=== PATIENT | female | born 1955 | race Caucasian/White ===

== ENCOUNTER 2017-02-06 15:56 | Inpatient (IN) | payer OTHER ==
--- NOTE | ~2017-02-06 | DS ---
Discharge Summary [facility] [address] [place]. [address] NAME: MARLY SILVA : 59 STATUS : DIS IN PAT#: [id number] AGE: 61 ADM/REG DATE : 02/06/17 MR#: [id number] REPORT SERV DATE: 02/15/17 DICTATED BY: MARIA DEL ROSARIO CAMARGO DATE: 02/14/17 REPORT STATUS : Draft TRANSCRIBED BY: MODL DATE: 02/14/17 ADMISSION DATE: 02/06/2017 DISCHARGE DATE: 02/14/2017 GI DOCTOR: Delvis Mark M.D. SURGEON: Lukas Whitehead M.D. HOSPITAL COURSE: Please refer to the H and P done by Dr. Perkins on 02/06/2017 and my interim discharge summary done on 02/13/2017. Since my discharge summary, the patient has only minimal abdominal pain. Dr. Whitehead came back from the weekend and he told me that this patient getting a PTC would most likely be a big mistake. The patient was seen by him today, said she has minimal pain and he believes that outpatient observation is warranted rather than the risk of any kind of PTC. I discussed the case with Dr. Dalton who agrees with Dr. Whitehead after reviewing the MRI and this was discussed with the patient. The patient is worried about her pain, but admits that it is much much less compared to when she came in. I told her that we will increase her diet and if she tolerates a soft diet, she would be able to be discharged home. She needs to follow up with Dr. Faby Mota in one to two weeks and followup with Dr. Mark. Having a procedure right now would contain more risks and benefits, especially when clinically and laboratory peralta she is improving. However, if that gets worse with fever, vomiting, she might need followup imaging to see if she would need intervention. She will be discharged home after she eats on the following medications: Norvasc 2.5 mg a day, 1 mg twice a day, lisinopril 40 mg a day, metoprolol 100 mg twice a day, Protonix 40 mg twice a day, Seroquel 100 mg at bedtime, Neurontin 300 mg four times a day, Cymbalta 60 mg a day, iron 325 mg twice a day, baclofen 10 mg four times a day, Reglan 10 mg three times a day p.r.n., vitamin B12 at 1000 mcg q.30 days, Caltrate 600 mg twice a day, multivitamin once a day, Prolia 60 mg subcu every six months, Excedrin p.r.n. I will give her a prescription for Lortab 5/325 q.6 hours p.r.n. pain for about a week only. This has been explained to the patient at length. TIME SPENT: 40 minutes. MONICA/OLYA Maria Del Rosario Camargo M.D. / [id number] CC: Lm Guthrie M.D.
--- NOTE | ~2017-02-06 | CN ---
Consultation Report [address] [address] NAME: MARLY SILVA : 59 STATUS : DIS IN PAT#: [id number] AGE: 61 ADM/REG DATE : 02/06/17 MR#: [id number] REPORT SERV DATE: 02/08/17 DICTATED BY: PIPER HALE DATE: 02/08/17 REPORT STATUS : Draft TRANSCRIBED BY: MODL DATE: 02/08/17 CONSULTATION DATE OF CONSULTATION: 02/07/2017 LOCATION: Bed 503. CHIEF COMPLAINT: I am asked to see this lady with pancreatitis. HISTORY OF PRESENT ILLNESS: This 61-year-old lady is well known to me. She has had a history of recurrent esophageal dilatations for strictures. Past medical history is remarkable for hypertension, migraines, and glucose intolerance. She had a partial gastrectomy approximately 10 years ago. Recent complaints include a rather marked upper abdominal pain with repetitive nausea and vomiting. She denied diarrhea or blood in the stools. She currently denies chills or fever. She is post cholecystectomy a number of years ago. HOME MEDICATIONS: Include: Cymbalta, Neurontin, lisinopril, and Reglan. PHYSICAL EXAMINATION: HEENT: Head, eyes, ears, nose, and throat grossly normal. NECK: Supple. CHEST: Clear. CARDIAC: Regular rhythm. ABDOMEN: Soft and nontender. Bowel sounds are diminished. No palpable masses. LABORATORY DATA: Initial lab work showed hemoglobin of 12. Alkaline phosphatase and ALT were elevated about twice the upper limits of normal. Lipase and amylase were both in the 3000 range. IMPRESSION: Acute pancreatitis post cholecystectomy. Most likely gallstone related. PLAN: MRCP is pending. We will probably proceed with ERCP and possible stone extraction or sphincterotomy in the near future. Thank you for allowing me to see this lady. DAVID/OLYA Piper Hale M.D. Consultation Report [address] [address] NAME: MARLY SILVA : 59 STATUS : DIS IN PAT#: [id number] AGE: 61 ADM/REG DATE : 02/06/17 MR#: [id number] REPORT SERV DATE: 02/08/17 DICTATED BY: PIPER HALE DATE: 02/08/17 REPORT STATUS : Draft TRANSCRIBED BY: OLYA DATE: 02/08/17 / [id number] CC: Lm Guthrie M.D.
--- NOTE | ~2017-02-06 | OP ---
Record Of Operation [facility] [place] [address] NAME: MARLY SILVA : 59 STATUS : DIS IN PAT#: [id number] AGE: 61 ADM/REG DATE : 02/06/17 MR#: [id number] REPORT SERV DATE: 02/09/17 DICTATED BY: PIPER HALE DATE: 02/09/17 REPORT STATUS : Draft TRANSCRIBED BY: MODL DATE: 02/09/17 DATE OF PROCEDURE: 02/09/2017 PREOPERATIVE DIAGNOSES: 1. Acute pancreatitis. 2. Abnormal biliary scan. PROCEDURE: ERCP. POSTOPERATIVE DIAGNOSIS: Unsuccessful ERCP. PREMEDICATION: Diprivan. PROCEDURE IN DETAIL: The scope was inserted without difficulty. There has been a subtotal gastrectomy with a Billroth II anastomosis. Both the afferent and efferent limbs were inspected and no ampulla can be found. Therefore, the procedure was terminated. IMPRESSION: Successful ERCP. DAVID/OLYA Piper Hale M.D. / [id number] CC: Lm Guthrie M.D.
--- NOTE | ~2017-02-06 | IDS ---
Interim Discharge Summary [facility] [address] [facility] [place]. [address] NAME: MARLY SILVA : 59 STATUS : DIS IN PAT#: [id number] AGE: 61 ADM/REG DATE : 02/06/17 MR#: [id number] REPORT SERV DATE: 02/13/17 DICTATED BY: MARIA DEL ROSARIO CAMARGO DATE: 02/13/17 REPORT STATUS : Draft TRANSCRIBED BY: MODL DATE: 02/13/17 ADMISSION DATE: 02/06/2017 DISCHARGE DATE: SURGERY: Dr. Whitehead. INTERIM DIAGNOSES: 1. Gallstone pancreatitis. 2. Choledocholithiasis. 3. Status post ileus versus small bowel obstruction. 4. Hypertension. 5. Status post hypokalemia. 6. Depression. DIAGNOSTIC EXAMS: CAT scan of the abdomen and pelvis showing extensive prior bowel surgery with air and fluid dilated, probable small bowel anastomotic site. Left lower quadrant abdomen may represent a peristaltic segment at the anastomosis of the bowel. Correlation with prior surgical history needed, mildly dilated small bowel throughout the upper to lower abdomen with air-fluid levels. Transition zone not identified. Normal caliber distal ileum. Dilated bowel segments measure up to 3.5 cm in diameter consistent with a moderate partial SBO pattern versus small bowel ileus pattern. Postsurgical changes from apparent gastric surgery, appendectomy, cholecystectomy, hysterectomy. KUB, enteric tube passing into the proximal gastric cardia, proximal port remains 4 cm above the GE junction, advancement of 5-6 cm, no further radiographic confirmation should be needed. Subsegmental atelectasis, left lung base. Moderately air dilated small bowel segments, left lower quadrant. Chest x-ray, bandlike opacity over the periphery of the right upper lobe likely related to scarring and/or atelectasis. MRI of the abdomen, stone or several stones in the distal common bile duct intermittently obstructing the common bile duct. There is pancreatitis, prior cholecystectomy. Hepatic ultrasound, status post cholecystectomy with 11 mm common bile duct. No stone identified within the duct sonography. HOSPITAL COURSE: Please refer to the H and P done by Dr. Perkins dated on 02/06/2017. Briefly, this is a 61-year-old female who comes in with nausea and vomiting. The patient has been having nausea, vomiting, abdominal pain, and went to the emergency room. She was admitted by Dr. Perkins and the above tests were done. We got Dr. Whitehead to consult and follow the patient up and said that he will not be able to do surgery for her and they should try removal of the stones through the ERCP. We got Dr. Mark involved, attempted an ERCP but could not cannulate the bile ducts. He then said that the patient would need surgery to remove the stones. I discussed the case with Dr. Whitehead and together, we presented the option to the patient and we tried conservatively advancing her diet as her liver enzymes are improving. The patient was initially able to tolerate a diet. However, the pain got worse and now needing more pain medications. I discussed with her about the possibility of a PTC through the Interventional Radiology and she is willing to undergo that to get rid of the pain. The patient will now be scheduled for PTC. Partner of mine will be following up the patient starting Tuesday. Interim Discharge Summary [address] [address] NAME: MARLY SILVA : 59 STATUS : DIS IN PAT#: [id number] AGE: 61 ADM/REG DATE : 02/06/17 MR#: [id number] REPORT SERV DATE: 02/13/17 DICTATED BY: MARIA DEL ROSARIO CAMARGO DATE: 02/13/17 REPORT STATUS : Draft TRANSCRIBED BY: OLYA DATE: 02/13/17 MONICA/OLYA Maria Del Rosario Camargo M.D. / [id number] CC: Lm Guthrie
--- NOTE | ~2017-02-06 | HP ---
History And Physical [place] [id number] [facility] [place]. [address] NAME: MARLY SILVA : 59 STATUS : DIS IN PAT#: [id number] AGE: 61 ADM/REG DATE : 02/06/17 MR#: [id number] REPORT SERV DATE: 02/06/17 DICTATED BY: SYED VARGAS DATE: 02/06/17 REPORT STATUS : Draft TRANSCRIBED BY: MODHoward DATE: 02/06/17 DATE OF ADMISSION: 02/06/2017 HISTORY OF PRESENT ILLNESS: The patient is a 61-year-old female, who presented today to [facility] emergency room because of complaint of nausea and vomiting, started this morning at 11 a.m. The patient said that she was having nausea, vomiting, and abdominal pain started at the same time. She said that it all started this morning and she vomited that she ate yesterday. She denies any hematemesis. She is complaining of abdominal pain mostly in the upper abdomen, but she has some pain in the lower abdomen as well. She denies any chest pain or shortness of breath. No fever. No rash. No headaches. Right now in the emergency room after she received morphine, she is feeling better and comfortable and not vomiting anymore. All 14-point review of systems done and negative except what is stated in the history of present illness. PAST MEDICAL HISTORY: Known for history of partial gastrectomy for stomach not working properly according to the patient was done 10 years ago in [place] by Dr. Alexis Bales. Also, had multiple abdominal surgeries in the past. Other medical problems include history of migraine headaches, hypertension, depression, history of pneumonia in the past. Also, she said that she has a depression and she sees Dr. Garcia. She is on multiple antipsychotic medications including Seroquel and Cogentin. She denies any history of heart attacks. No strokes. SURGICAL HISTORY: According to the patient, she had history of cholecystectomy, appendectomy, partial gastrectomy, tonsillectomy, and also she had some surgery on her leg as well. HOME MEDICATIONS: Include Norvasc 2.5 mg a day, baclofen 10 mg a day, calcium carbonate 600 mg b.i.d., vitamin B12 1000 mcg subcu daily, Prolia 60 mg a day, Cymbalta 60 mg a day, ferrous sulfate 325 p.o. b.i.d., Neurontin 300 four times a day, lisinopril 40 a day, Reglan 10 mg three times daily p.r.n., metoprolol 100 mg p.o. twice a day, multivitamins daily, nitrofurantoin 100 mg b.i.d., Seroquel 100 mg daily, and Excedrin three tablets p.o. twice a day. FAMILY HISTORY: Mother had coronary artery disease, had coronary artery bypass grafting. Father of an excessive alcohol use. SOCIAL HISTORY: She is . She has three children. No alcohol. No recreational drug use. She used to smoke one pack per day and she quit smoking in 2012. PRIMARY CARE PHYSICIAN: Faby larose. PSYCHIATRIST: Dr. Garcia. History And Physical [address] [address] NAME: MARLY SILVA : 59 STATUS : DIS IN PAT#: [id number] AGE: 61 ADM/REG DATE : 02/06/17 MR#: [id number] REPORT SERV DATE: 02/06/17 DICTATED BY: SYED VARGAS DATE: 02/06/17 REPORT STATUS : Draft TRANSCRIBED BY: OLYA DATE: 02/06/17 MANAGER STRATEGIC PARTNERSHIPS: Delvis Mark M.D. PHYSICAL EXAMINATION: GENERAL: Overweight female, not in acute distress. Resting quietly. VITAL SIGNS: Blood pressure 139/66, temperature 98.1, heart rate 74, respiratory rate 18, and oxygen saturation 95 on room air. HEENT: Head atraumatic, normocephalic. Conjunctivae clear. Pupils are equal and reactive to light and accommodation. Extraocular muscles are intact. NECK: Supple. Trachea is midline. No supraclavicular or cervical lymphadenopathy. LUNGS: Diminished breath sounds bilaterally. Decreased respiratory effort. CARDIOVASCULAR SYSTEM: Regular rate and rhythm. Ihvbu-xk-tgoqldh impulse not displaced. ABDOMEN: Obese, very soft. There is a tenderness to palpation in the upper abdominal area, epigastric area, right and left lower quadrants, as well as periumbilical area. There is no guarding. There is no rebound, very soft abdomen. There are slightly diminished bowel sounds. No organomegaly. EXTREMITIES: No clubbing, cyanosis. No edema. SKIN: Normal color and turgor. Slightly decreased turgor. PSYCHIATRIC: Normal mood, slightly flat affect. NEUROLOGIC: Awake, alert, and oriented in time, place, and person. EXTREMITIES: Muscle strength is 5/5 bilaterally in the upper and lower extremities. LABORATORY RESULTS: White count 10.5, hemoglobin 15.7, hematocrit 45.4, and platelet count 245. INR is 1. PT 13.4. Sodium 145, potassium 4.1, chloride 110, carbon dioxide 25, BUN 23, creatinine 0.77. Blood sugar 173. Total bilirubin 1.4. Alkaline phosphatase 330. ALT 498. AST 1009. Lipase 5292. Urinalysis showed small amount of bilirubin, trace leukocyte esterase, only 8 white blood cells. IMAGING: CT of the abdomen and pelvis without contrast revealed extensive prior bowel surgeries with air and fluid-dilated probable small bowel anastomotic site, left lower quadrant. This may represent peristaltic segment at an anastomosis of the segment of the small bowel, although correlations with prior surgical history needed. Mildly dilated small bowel, although the lower abdomen with air-fluid levels transitional zone not identified, although normal caliber distal ileum. The dilated bowel segment measures up to 3.5 cm consistent with a moderate partial small-bowel obstruction pattern. There was a small bowel ileus pattern. Postsurgical changes from apparent gastric surgery, appendectomy, cholecystectomy, and hysterectomy. ASSESSMENT AND PLAN: 1. 61-year-old female with an extensive abdominal surgeries, history of partial gastrectomy, history of hypertension, history of depression, and possible other psychiatric disorder, presented with nausea, vomiting, abdominal pain, started this morning. 2. She has a diagnosis of acute pancreatitis with her lipase being elevated at the level of 5292 and elevated liver enzymes, which is consistent with acute pancreatitis. There is some cholestatic pattern and mildly elevated bilirubin. Differential diagnosis will include possible biliary source versus possible medication-induced pancreatitis. We will start the patient on vigorous IV fluid hydration, as well as we will give her History And Physical [address] [address] NAME: MARLY SILVA : 59 STATUS : DIS IN PAT#: [id number] AGE: 61 ADM/REG DATE : 02/06/17 MR#: [id number] REPORT SERV DATE: 02/06/17 DICTATED BY: SYED VARGAS DATE: 02/06/17 REPORT STATUS : Draft TRANSCRIBED BY: MODHoward DATE: 02/06/17 reasonable pain and nausea control for acute pancreatitis. We will check a fractionated bilirubin level and we will check hepatitis profile as well. 3. We will check also her fasting lipid profile in the morning. 4. We will monitor her closely. We will keep her n.p.o. within good IV fluid hydration. She is getting a central line in the emergency room. 5. Partial small-bowel obstruction. I discussed CT of the abdomen and pelvis with surgeon, Dr. Whitehead and asked him to see the patient today, but he said that he will see the patient tomorrow. He recommended to put a nasogastric tube placement to low intermittent suction. He recommended this to me by phone and he said that most likely patient has ileus related to acute pancreatitis and recommended to do acute pancreatitis evaluation, as well as I spoke with Dr. Mark, her mechanical engineering lecturer and he is familiar with her. He also recommended to put nasogastric tube placement to low intermittent suction. 6. Regarding her urinalysis, I do not think this is active urinary infection. She has very minimal changes on the urinary analysis and I do not think she has a urinary tract infection. 7. History of abdominal surgery 10 years ago. We will request old records from her surgeon in [place], Dr. Alexis Bales. We will also request old records with Faby Mota. We will put the patient on intravenous antibiotics. She has hyperglycemia. We will check her hemoglobin A1c. 8. She may need to be on insulin sliding scale. 9. Heme-positive stool done in the Emergency Room with normal hemoglobin. We will check serial hemoglobin and hematocrit. We will put the patient on Protonix 40 mg IV b.i.d. I will follow up on this patient starting tomorrow. I will ask also Dr. Mark to see this patient today. MG/MODL Syed Vargas M.D. / [id number] CC: Lm Faust M.D. Matthew Bagamery, M.D.
--- NOTE | ~2017-02-06 | CN ---
Consultation Report [facility] [address] [place]. [address] NAME: MARLY SILVA : 59 STATUS : DIS IN PAT#: [id number] AGE: 61 ADM/REG DATE : 02/06/17 MR#: [id number] REPORT SERV DATE: 02/08/17 DICTATED BY: LUKAS VEGAS DATE: 02/07/17 REPORT STATUS : Draft TRANSCRIBED BY: MODL DATE: 02/07/17 SURGICAL CONSULTATION DATE OF CONSULTATION: 02/07/2017 REASON FOR CONSULTATION: Abdominal pain. HISTORY OF PRESENT ILLNESS: This pleasant 61-year-old female presented to the emergency department with an acute onset of sharp mid abdominal pain that was like a belt. It began at 11 o'clock on the morning on the day of presentation. She had associated nausea and vomiting after the pain. She denied hematemesis or coffee-ground emesis. She denied any recent change in bowel or bladder habits, weight loss, fever, chills or other constitutional symptoms. She had no previous history of recent abdominal pain. She has no other constitutional symptoms other than some dysuria. She has a history of gastrectomy with unknown anatomy after the resection approximately 15 years ago in [place], [place] by Dr. Alexis Bales. She has had multiple abdominal surgeries in the past. PAST MEDICAL HISTORY: She has past medical history for a psychotic disorder, hypertension, depression, and a history of pneumonia. PAST SURGICAL HISTORY: Cholecystectomy, appendectomy, and tonsillectomy. ALLERGIES: TORADOL AND PENICILLINS. MEDICATIONS: Please see hospital chart. FAMILY HISTORY: Positive for coronary artery disease. Her father of alcoholism. SOCIAL HISTORY: The patient is . She has three children. She denies alcohol or illicit drug usage. She quit smoking in 2012. REVIEW OF SYSTEMS: No headache, blurred vision, dizziness, chest pain, shortness of breath, cough, dyspnea on exertion, syncope, palpitations, jaundice, itching, bright red blood per rectum, or melena. PHYSICAL EXAMINATION: GENERAL: Well-developed female, in no apparent distress. NECK: Supple. No adenopathy. CARDIOVASCULAR: Regular rate and rhythm without murmur. RESPIRATORY: Clear to auscultation. ABDOMEN: Soft. The patient has multiple well-healed abdominal incisions with an umbilical hernia. She has no abdominal tenderness, mass, rebound, guarding, or peritoneal signs. BACK: No CVA tenderness. EXTREMITIES: No clubbing, cyanosis, edema, or jaundice. Consultation Report [place] [address] [place]. [address] NAME: MARLY SILVA : 59 STATUS : DIS IN PAT#: [id number] AGE: 61 ADM/REG DATE : 02/06/17 MR#: [id number] REPORT SERV DATE: 02/08/17 DICTATED BY: LUKAS VEGAS DATE: 02/07/17 REPORT STATUS : Draft TRANSCRIBED BY: OLYA DATE: 02/07/17 LABORATORY DATA: White blood cell count is within normal limits. Liver function studies are elevated along with lipase. She has white blood cells in her urine with trace leukocyte esterase. CT scan of the abdomen and pelvis revealed some air-fluid levels in the small bowel with ileus pattern versus partial bowel obstruction. She had an ultrasound that revealed no clear cut gallstones with mildly dilated common bile duct. She had an MRCP that reveals the possibility of a common bile duct stone. ASSESSMENT: 1. Biliary pancreatitis with improving clinical labs and physical exam consistent with passage of a common bile duct stone. 2. Possible persistent common bile duct stones. 3. History of gastrectomy. 4. Ileus versus partial small bowel obstruction. 5. Multiple medical problems as above. PLAN: I agree with IV antibiotics, NG tube decompression, bowel rest, IV fluids, and serial physical exam and labs. The patient has no acute indication for surgery at this time. I agree with GI consultation per Dr. Mark for consideration for ERCP if possible pending anatomy and reconstruction after gastrectomy. HAL/OLYA Lukas Vegas M.D. / [id number] CC: Lm Faust M.D.
[2017-02-06 13:24] LABS: BASOPHILS 0.7 %; BASOPHILS ABSOLUTE 0.07 10/3/uL (0.0-0.16); EOSINOPHILS ABSOLUTE 0.21 10/3/uL (0.0-0.53); ER CBC TAT 0 Hrs 03 Mins; HEMATOCRIT 45.4 % (36.0-48.0); HEMOGLOBIN 15.7 g/dL (12.0-16.0); IMMATURE GRANULOCYTES 0.2 %; IMMATURE GRANULOCYTES ABSOLUTE 0.02 10/3/uL (0.0-0.11); LYMPHOCYTES ABSOLUTE 1.05 10/3/uL (0.67-4.30); MEAN CORPUS HGB CONC 34.6 g/dL (32.0-36.0); MEAN CORPUSCULAR HEMOGLOB 33.2 pg (26.0-34.0); MEAN PLATELET VOLUME 10.5 fL (9.2-13.0); MONOCYTES 7.7 %; MONOCYTES ABSOLUTE 0.81 10/3/uL (0.21-1.20); NEUTROPHILS 79.4 %; NEUTROPHILS ABSOLUTE 8.36 10/3/uL (2.02-8.40); PLATELET COUNT 245 10/3/uL (150-400); RBC DISTRIBUTION WIDTH 13.4 % (12.0-16.0); RED CELL COUNT 4.73 10/6/uL (4.0-5.6); WHITE BLOOD CELLS 10.5 10/3/uL (4.5-10.5)
[2017-02-06 13:25] LABS: MANUAL DIFF NO %
[2017-02-06 13:44] LABS: A/G RATIO 1.1 (0.7-1.9); ALBUMIN 3.6 G/DL (3.5-5.0); ALKALINE PHOSPHATASE 330 U/L (45-117); BUN (BLOOD UREA NITROGEN) 23 MG/DL (6-23); CALCIUM, SERUM 8.9 MG/DL (8.5-10.4); CHLORIDE, SERUM 110 MMOL/L (96-112); CO2 (CARBON DIOXIDE) 25 MMOL/L (24-34); CREATININE 0.77 MG/DL (0.55-1.02); GFR AFRICAN AMERICAN 98 ML/MIN (>=60); GFR NON AFRICAN AMERICAN 85 ML/MIN (>=60); GLOBULIN 3.2 G/DL (2.5-4.1); GLUCOSE, SERUM 173 MG/DL (60-99); POTASSIUM, SERUM 4.1 MMOL/L (3.5-5.3); SGOT(AST) 1009 U/L (5-40); SGPT(ALT) 498 U/L (5-65); SODIUM, SERUM 145 MMOL/L (135-148); TOTAL BILIRUBIN 1.4 MG/DL (0-1.2); TOTAL PROTEIN 6.8 G/DL (6.0-8.5)
[2017-02-06 14:04] LABS: ASCORBIC ACID (UR NOT ORDER) NEG (NEG); BILIRUBIN, URINE SMALL (NEG); ER URINALYSIS TAT 0 Hrs 24 Mins; KETONE, URINE NEGATIVE (NEG); LEUKOCYTE ESTERASE(NOT OR TRACE (NEG); NITRITE (URINE) POS (NEG); WBC (NOT ORDERED) (RFLEX) 8 (0-5)
[2017-02-06 14:16] LABS: PARTIAL THROMBO TIME 26.9 SEC (22.5-37.2); PROTIME (NOT ORD) 13.4 SEC (12.0-14.5)
[~2017-02-06 15:56] MED LIST: ACTONEL35 MG PO; AFRIN15 NAS; ATEN100 PO; B12 INJECT; B121000P IM; B121000P SC; BACDS PO; CALTRAT600 PO; CEPHALEXIN; CIP5 PO; COGEN1 PO; COVARYX HS PO; CPZ100 PO; CYMBALTA60 PO; ERYTHROCIN500 MG PO; EXCEDRIN MIGRAINE PO; FERROUS SULF324 MG PO; FERROUS SULF325 M1 PO; LIOR10 PO; LISINOPRIL40 MG PO; LOP100 PO; MACRO50B PO; MACROBID PO; METHOC500B PO; METHOC750B PO; NEUR300 PO; NEXIUM40 PO; NORV25 PO; PRIN10 PO; PRIN5 PO; PROLIA60 MG/1 ML SC; REG PO; REQUIP5 MG PO; SEROQUEL1C PO; THERGRANM PO
[2017-02-06 20:03] LABS: DIRECT BILIRUBIN 0.9 MG/DL (0.0-0.4); INDIRECT BILIRUBIN(NOT ORDER) 0.5 MG/DL (0.1-0.9)
[2017-02-06 22:47] LABS: HEMATOCRIT 40.9 % (36.0-48.0); HEMOGLOBIN 13.7 g/dL (12.0-16.0)
[2017-02-07 05:09] LABS: CHLORIDE, SERUM 114 MMOL/L (96-112); CHOL/HDL RATIO(NOT ORDER) 3.2 (0-5); CHOLESTEROL 121 MG/DL (< 200); CO2 (CARBON DIOXIDE) 25 MMOL/L (24-34); CREATININE 0.36 MG/DL (0.55-1.02); GFR AFRICAN AMERICAN 137 ML/MIN (>=60); GFR NON AFRICAN AMERICAN 118 ML/MIN (>=60); HDL CHOLESTEROL 38 MG/DL (> 49); LDL CHOLESTEROL 59 MG/DL (< 130); NON-HDL CHOLESTEROL 83 MG/DL (< 160); SGPT(ALT) 272 U/L (5-65); SODIUM, SERUM 146 MMOL/L (135-148); TRIGLYCERIDE 121 MG/DL (< 150)
[2017-02-07 05:14] LABS: ALBUMIN 2.6 G/DL (3.5-5.0); ALKALINE PHOSPHATASE 222 U/L (45-117); BUN (BLOOD UREA NITROGEN) 19 MG/DL (6-23); GLOBULIN 2.7 G/DL (2.5-4.1); GLUCOSE, SERUM 86 MG/DL (60-99); POTASSIUM, SERUM 3.9 MMOL/L (3.5-5.3); SGOT(AST) 219 U/L (5-40); TOTAL BILIRUBIN 0.5 MG/DL (0-1.2); TOTAL PROTEIN 5.3 G/DL (6.0-8.5)
[2017-02-07 06:53] LABS: BASOPHILS 0.6 %; BASOPHILS ABSOLUTE 0.04 10/3/uL (0.0-0.16); EOSINOPHILS 8.8 %; EOSINOPHILS ABSOLUTE 0.57 10/3/uL (0.0-0.53); HEMATOCRIT 42.3 % (36.0-48.0); IMMATURE GRANULOCYTES 0.2 %; IMMATURE GRANULOCYTES ABSOLUTE 0.01 10/3/uL (0.0-0.11); LYMPHOCYTES 26.2 %; MANUAL DIFF NO %; MEAN CORPUS HGB CONC 33.1 g/dL (32.0-36.0); MEAN CORPUSCULAR HEMOGLOB 32.6 pg (26.0-34.0); MEAN CORPUSCULAR VOLUME 98.6 fL (80-100); MEAN PLATELET VOLUME 10.2 fL (9.2-13.0); MONOCYTES 9.4 %; MONOCYTES ABSOLUTE 0.61 10/3/uL (0.21-1.20); NEUTROPHILS 54.8 %; NEUTROPHILS ABSOLUTE 3.57 10/3/uL (2.02-8.40); PLATELET COUNT 193 10/3/uL (150-400); RBC DISTRIBUTION WIDTH 13.5 % (12.0-16.0); RED CELL COUNT 4.29 10/6/uL (4.0-5.6); WHITE BLOOD CELLS 6.5 10/3/uL (4.5-10.5)
[2017-02-07 10:24] LABS: HEPATITIS C ANTIBODY NON-REACTIVE (NON-REACT)
[2017-02-07 10:25] LABS: HEPATITIS B CORE AB IGM NON-REACTIVE (NON-REAC); HEPATITIS B SURFACE ANTIGEN NON-REACTIVE (NON-REACT)
[2017-02-07 10:26] LABS: HEP A ANTIBODY IGM NON-REACTIVE (NON-REACT)
[2017-02-07 12:37] LABS: HEMATOCRIT 39.4 % (36.0-48.0); HEMOGLOBIN 13.5 g/dL (12.0-16.0)
[2017-02-08 05:38] LABS: BASOPHILS 0.2 %; BASOPHILS ABSOLUTE 0.02 10/3/uL (0.0-0.16); EOSINOPHILS 0.9 %; EOSINOPHILS ABSOLUTE 0.09 10/3/uL (0.0-0.53); HEMATOCRIT 41.9 % (36.0-48.0); HEMOGLOBIN 14.2 g/dL (12.0-16.0); IMMATURE GRANULOCYTES 0.3 %; IMMATURE GRANULOCYTES ABSOLUTE 0.03 10/3/uL (0.0-0.11); LYMPHOCYTES 8.9 %; LYMPHOCYTES ABSOLUTE 0.85 10/3/uL (0.67-4.30); MANUAL DIFF NO %; MEAN CORPUS HGB CONC 33.9 g/dL (32.0-36.0); MEAN CORPUSCULAR HEMOGLOB 32.9 pg (26.0-34.0); MEAN CORPUSCULAR VOLUME 97.2 fL (80-100); MEAN PLATELET VOLUME 10.2 fL (9.2-13.0); MONOCYTES 6.3 %; NEUTROPHILS 83.4 %; NEUTROPHILS ABSOLUTE 8.01 10/3/uL (2.02-8.40); PLATELET COUNT 228 10/3/uL (150-400); RBC DISTRIBUTION WIDTH 13.1 % (12.0-16.0); RED CELL COUNT 4.31 10/6/uL (4.0-5.6); WHITE BLOOD CELLS 9.6 10/3/uL (4.5-10.5)
[2017-02-08 06:10] LABS: ALBUMIN 2.9 G/DL (3.5-5.0); ALKALINE PHOSPHATASE 203 U/L (45-117); BUN (BLOOD UREA NITROGEN) 6 MG/DL (6-23); CALCIUM, SERUM 6.8 MG/DL (8.5-10.4); CHLORIDE, SERUM 106 MMOL/L (96-112); CO2 (CARBON DIOXIDE) 27 MMOL/L (24-34); CREATININE 0.25 MG/DL (0.55-1.02); GFR AFRICAN AMERICAN 154 ML/MIN (>=60); GFR NON AFRICAN AMERICAN 133 ML/MIN (>=60); GLOBULIN 2.8 G/DL (2.5-4.1); GLUCOSE, SERUM 114 MG/DL (60-99); POTASSIUM, SERUM 3.2 MMOL/L (3.5-5.3); SGOT(AST) 62 U/L (5-40); SGPT(ALT) 178 U/L (5-65); SODIUM, SERUM 143 MMOL/L (135-148); TOTAL BILIRUBIN 0.4 MG/DL (0-1.2); TOTAL PROTEIN 5.7 G/DL (6.0-8.5)
[2017-02-09 05:56] LABS: HEMATOCRIT 43.2 % (36.0-48.0); HEMOGLOBIN 14.7 g/dL (12.0-16.0)
[2017-02-09 06:20] LABS: BUN (BLOOD UREA NITROGEN) 5 MG/DL (6-23); CHLORIDE, SERUM 107 MMOL/L (96-112); CO2 (CARBON DIOXIDE) 25 MMOL/L (24-34); CREATININE 0.32 MG/DL (0.55-1.02); GFR AFRICAN AMERICAN 142 ML/MIN (>=60); GFR NON AFRICAN AMERICAN 123 ML/MIN (>=60); GLUCOSE, SERUM 104 MG/DL (60-99); POTASSIUM, SERUM 3.7 MMOL/L (3.5-5.3); SODIUM, SERUM 142 MMOL/L (135-148)
[2017-02-09 06:21] LABS: CALCIUM, SERUM 6.8 MG/DL (8.5-10.4)
[2017-02-10 06:42] LABS: BASOPHILS 0.1 %; BASOPHILS ABSOLUTE 0.01 10/3/uL (0.0-0.16); EOSINOPHILS 2.1 %; EOSINOPHILS ABSOLUTE 0.15 10/3/uL (0.0-0.53); HEMOGLOBIN 13.5 g/dL (12.0-16.0); IMMATURE GRANULOCYTES 0.3 %; IMMATURE GRANULOCYTES ABSOLUTE 0.02 10/3/uL (0.0-0.11); LYMPHOCYTES 17.7 %; LYMPHOCYTES ABSOLUTE 1.27 10/3/uL (0.67-4.30); MEAN CORPUS HGB CONC 34.6 g/dL (32.0-36.0); MEAN CORPUSCULAR HEMOGLOB 32.5 pg (26.0-34.0); MONOCYTES 9.5 %; MONOCYTES ABSOLUTE 0.68 10/3/uL (0.21-1.20); NEUTROPHILS 70.3 %; NEUTROPHILS ABSOLUTE 5.04 10/3/uL (2.02-8.40); PLATELET COUNT 253 10/3/uL (150-400); RBC DISTRIBUTION WIDTH 13.3 % (12.0-16.0); RED CELL COUNT 4.16 10/6/uL (4.0-5.6); WHITE BLOOD CELLS 7.2 10/3/uL (4.5-10.5)
[2017-02-10 06:46] LABS: MANUAL DIFF NO %; MEAN CORPUSCULAR VOLUME 93.8 fL (80-100)
[2017-02-10 06:57] LABS: A/G RATIO 0.9 (0.7-1.9); ALBUMIN 2.8 G/DL (3.5-5.0); BUN (BLOOD UREA NITROGEN) 4 MG/DL (6-23); CALCIUM, SERUM 7.3 MG/DL (8.5-10.4); CHLORIDE, SERUM 109 MMOL/L (96-112); CO2 (CARBON DIOXIDE) 25 MMOL/L (24-34); CREATININE 0.27 MG/DL (0.55-1.02); GFR AFRICAN AMERICAN 150 ML/MIN (>=60); GFR NON AFRICAN AMERICAN 130 ML/MIN (>=60); GLOBULIN 3.1 G/DL (2.5-4.1); GLUCOSE, SERUM 112 MG/DL (60-99); POTASSIUM, SERUM 3.9 MMOL/L (3.5-5.3); SGOT(AST) 14 U/L (5-40); SGPT(ALT) 78 U/L (5-65); SODIUM, SERUM 142 MMOL/L (135-148); TOTAL BILIRUBIN 0.3 MG/DL (0-1.2); TOTAL PROTEIN 5.9 G/DL (6.0-8.5)
[2017-02-10 06:58] LABS: ALKALINE PHOSPHATASE 160 U/L (45-117)
[2017-02-12 12:33] LABS: ASCORBIC ACID (UR NOT ORDER) NEG (NEG); BILIRUBIN, URINE NEGATIVE (NEG); KETONE, URINE NEGATIVE (NEG); LEUKOCYTE ESTERASE(NOT OR MOD (NEG); WBC (NOT ORDERED) (RFLEX) 48 (0-5)
[2017-02-13 06:30] LABS: BASOPHILS 0.6 %; BASOPHILS ABSOLUTE 0.04 10/3/uL (0.0-0.16); EOSINOPHILS 10.8 %; EOSINOPHILS ABSOLUTE 0.72 10/3/uL (0.0-0.53); IMMATURE GRANULOCYTES 0.5 %; IMMATURE GRANULOCYTES ABSOLUTE 0.03 10/3/uL (0.0-0.11); LYMPHOCYTES 27.4 %; LYMPHOCYTES ABSOLUTE 1.82 10/3/uL (0.67-4.30); MEAN CORPUS HGB CONC 33.8 g/dL (32.0-36.0); MEAN CORPUSCULAR HEMOGLOB 32.5 pg (26.0-34.0); MEAN CORPUSCULAR VOLUME 96.1 fL (80-100); MEAN PLATELET VOLUME 10.2 fL (9.2-13.0); MONOCYTES 7.2 %; MONOCYTES ABSOLUTE 0.48 10/3/uL (0.21-1.20); NEUTROPHILS 53.5 %; NEUTROPHILS ABSOLUTE 3.55 10/3/uL (2.02-8.40); PLATELET COUNT 238 10/3/uL (150-400); RBC DISTRIBUTION WIDTH 13.4 % (12.0-16.0); RED CELL COUNT 4.62 10/6/uL (4.0-5.6); WHITE BLOOD CELLS 6.6 10/3/uL (4.5-10.5)
[2017-02-13 06:32] LABS: HEMATOCRIT 44.4 % (36.0-48.0); MANUAL DIFF NO %
[2017-02-13 06:55] LABS: A/G RATIO 1.2 (0.7-1.9); BUN (BLOOD UREA NITROGEN) 6 MG/DL (6-23); CALCIUM, SERUM 8.1 MG/DL (8.5-10.4); CHLORIDE, SERUM 111 MMOL/L (96-112); CO2 (CARBON DIOXIDE) 22 MMOL/L (24-34); CREATININE 0.41 MG/DL (0.55-1.02); GFR AFRICAN AMERICAN 131 ML/MIN (>=60); GFR NON AFRICAN AMERICAN 113 ML/MIN (>=60); GLOBULIN 2.6 G/DL (2.5-4.1); GLUCOSE, SERUM 121 MG/DL (60-99); SGPT(ALT) 45 U/L (5-65); SODIUM, SERUM 146 MMOL/L (135-148); TOTAL BILIRUBIN 0.3 MG/DL (0-1.2); TOTAL PROTEIN 5.6 G/DL (6.0-8.5)
[2017-02-13 06:56] LABS: ALKALINE PHOSPHATASE 134 U/L (45-117); POTASSIUM, SERUM 4.9 MMOL/L (3.5-5.3); SGOT(AST) 28 U/L (5-40)
[2017-02-14 05:26] LABS: PROTIME (NOT ORD) 13.1 SEC (12.0-14.5)
[2017-02-14] MEDS ORDERED: NORCO1 TA1 PO (11:56)
[2017-02-14] MEDS ORDERED: PROTONIX PO (11:57)
[2017-04-22] MEDS ORDERED: CEFDINIR (21:10)
[2017-04-22] MEDS ORDERED: GABAPENTIN (21:10)
[2017-04-22] MEDS ORDERED: CYMBALTA (21:11)
[2017-04-22] MEDS ORDERED: FERROUS SULFATE (21:11)
[2017-04-22] MEDS ORDERED: LISINOPRIL (21:12)
[2017-04-22] MEDS ORDERED: BACLOFEN (21:13)
[2017-04-22] MEDS ORDERED: REGLAN (21:13)
[2017-04-22] MEDS ORDERED: B121000P IM (21:14)
[2017-04-22] MEDS ORDERED: ACTONEL (21:17)
[2017-04-22] MEDS ORDERED: LOPRESSOR (21:19)
[2017-04-22] MEDS ORDERED: THORAZINE (21:19)
[2017-04-22] MEDS ORDERED: COGENTIN (21:20)
[2017-04-22] MEDS ORDERED: CALCIUM (21:21)
[2017-04-22] MEDS ORDERED: MULTIVITAMIN (21:21)
[2017-04-22] MEDS ORDERED: VITAMIN D (21:21)
[2017-04-22] MEDS ORDERED: TYLENOL (21:22)
[2017-04-22] MEDS ORDERED: [UNRECOGNIZED DRUG - OTHER] (21:22)
[2017-04-22] MEDS ORDERED: PROMETHAZINE (21:23)
[2017-04-22] MEDS ORDERED: SEROQUEL (21:23)
[2017-04-22] MEDS ORDERED: NORVASC (21:24)
[2017-04-22] MEDS ORDERED: DUONEB (21:26)
[2017-04-22] MEDS ORDERED: *UNABLE3 (21:27)
== END 2017-02-14 13:37 | disposition home health service (06) | DRG 388 ==
LOC: ER 15:56 → 5SO 17:26
PROVIDERS: Emergency Medicine; Hospitalist; Internal Medicine; Internal Medicine Gastroenterology; Nurse Practitioner Family; Surgery
PROC: 0DJ08ZZ Inspection of Upper Intestinal Tract, Via Natural or Artificial Opening Endoscopic (ICD-10-PCS; principal; 2017-02-09 14:00)
DX: K56.69 Other intestinal obstruction (principal); K85.10 Biliary acute pancreatitis without necrosis or infection; I10 Essential (primary) hypertension; E87.6 Hypokalemia; F32.9 Major depressive disorder, single episode, unspecified; Z90.3 Acquired absence of stomach [part of]; Z98.890 Other specified postprocedural states; Z90.49 Acquired absence of other specified parts of digestive tract; Z79.899 Other long term (current) drug therapy; Z95.1 Presence of aortocoronary bypass graft; Z81.1 Family history of alcohol abuse and dependence; Z82.49 Family history of ischemic heart disease and other diseases of the circulatory system; Z87.891 Personal history of nicotine dependence; Z90.710 Acquired absence of both cervix and uterus
CPT/HCPCS: 71010; 74000; 74176; 74181; 76705; 80048; 80053; 80061; 80074; 81001; 82150; 82247; 82248; 83036; 83690; 83735; 83880; 84132; 85014; 85018; 85025; 85610; 85730; 87086; 93005; 96374; 97116-GP; 97161-GP; 99285; A9270-GY; C9113; J0360; J1170; J1956; J2370; J2405; J2710; J3010; Q9967